=== PATIENT | female | born 2000 | race Caucasian/White ===

== ENCOUNTER → 2019-09-11 09:19 | Outpatient (BNVA) | payer OTHER, SELFPAY | PROVIDERS: Family Provider Family Medicine; PCP Family Medicine; Visit Provider Obstetrics & Gynecology | DX: Z34.90 Encounter for supervision of normal pregnancy, unspecified, unspecified trimester (principal) | CPT/HCPCS: 36415; 82950; 85027 ==

== ENCOUNTER → 2019-09-27 15:00 | Outpatient (BNVA) | payer OTHER, SELFPAY | PROVIDERS: Family Provider Family Medicine; PCP Family Medicine; Visit Provider Obstetrics & Gynecology | DX: Z01.89 Encounter for other specified special examinations (principal) | CPT/HCPCS: 84315 ==

== ENCOUNTER → 2019-10-12 09:36 | Outpatient (BNVA) | payer OTHER, SELFPAY | PROVIDERS: Family Provider Family Medicine; PCP Family Medicine; Visit Provider Obstetrics & Gynecology Female Pelvic Medicine and Reconstructive Surgery | DX: Z01.89 Encounter for other specified special examinations (principal) | CPT/HCPCS: 84315 ==

== ENCOUNTER → 2019-10-26 08:31 | Outpatient (BNVA) | payer OTHER, SELFPAY | PROVIDERS: Family Provider Family Medicine; PCP Family Medicine; Visit Provider Nurse Practitioner Women's Health | DX: Z01.89 Encounter for other specified special examinations (principal) | CPT/HCPCS: 84315 ==

== ENCOUNTER → 2019-10-29 13:56 | Outpatient (BNVA) | payer OTHER, SELFPAY | PROVIDERS: Family Provider Family Medicine; PCP Family Medicine; Referring Provider Nurse Practitioner Women's Health; Visit Provider Obstetrics & Gynecology | DX: O26.00 Excessive weight gain in pregnancy, unspecified trimester (principal); Z36.89 Encounter for other specified antenatal screening; Z3A.35 35 weeks gestation of pregnancy | CPT/HCPCS: 76816 ==

== ENCOUNTER → 2019-10-30 13:31 | Outpatient (BNVA) | payer OTHER, SELFPAY | PROVIDERS: Family Provider Family Medicine; PCP Family Medicine; Referring Provider Obstetrics & Gynecology; Visit Provider Obstetrics & Gynecology | DX: O26.03 Excessive weight gain in pregnancy, third trimester (principal); Z3A.32 32 weeks gestation of pregnancy | CPT/HCPCS: 81003; 87086 ==

== ENCOUNTER → 2019-11-02 11:40 | Outpatient (BNVA) | payer OTHER, SELFPAY | PROVIDERS: Family Provider Family Medicine; PCP Family Medicine; Visit Provider Obstetrics & Gynecology | DX: O26.893 Other specified pregnancy related conditions, third trimester (principal); N89.8 Other specified noninflammatory disorders of vagina; B37.3 Candidiasis of vulva and vagina | CPT/HCPCS: 84315; 87210; 87491; 87591 ==

== ENCOUNTER → 2019-11-07 13:48 | Outpatient (BNVA) | payer OTHER, SELFPAY | PROVIDERS: Family Provider Family Medicine; PCP Family Medicine; Visit Provider Obstetrics & Gynecology | DX: Z01.89 Encounter for other specified special examinations (principal) | CPT/HCPCS: 84315 ==

== ENCOUNTER → 2019-11-26 15:29 | Outpatient (BNVA) | payer OTHER, SELFPAY | PROVIDERS: Family Provider Family Medicine; PCP Family Medicine; Visit Provider Obstetrics & Gynecology | DX: O26.03 Excessive weight gain in pregnancy, third trimester (principal) | CPT/HCPCS: 76816; 84315; 87081 ==

== ENCOUNTER → 2019-12-04 11:44 | Outpatient (BNVA) | payer OTHER, SELFPAY | PROVIDERS: Family Provider Family Medicine; PCP Family Medicine; Visit Provider Obstetrics & Gynecology | DX: Z46.89 Encounter for fitting and adjustment of other specified devices (principal) | CPT/HCPCS: 84315 ==

== ENCOUNTER → 2019-12-11 12:04 | Outpatient (BNVA) | payer OTHER, SELFPAY | PROVIDERS: Family Provider Family Medicine; PCP Family Medicine; Visit Provider Obstetrics & Gynecology | DX: Z01.89 Encounter for other specified special examinations (principal) | CPT/HCPCS: 84315 ==

== ENCOUNTER 2019-12-17 23:30 | Inpatient (IN) | payer OTHER, SELFPAY ==
[2019-12-17 19:45] VITALS: RESP 16; TEMP 36.9
[2019-12-17 20:06] VITALS: BMI 29.9
[2019-12-18] VITALS (38 sets, daily range): BP systolic 0–124; BP diastolic 0–81; PULSE 78–116; RESP 15–18; TEMP 36.4–38.8; O2SAT 95–99
[2019-12-18] MEDS: lactated ringers 1,000 ML 999 ML IV (00:10)
[2019-12-18 00:24] LABS: Basophils % 0.2 %; Eosinophils # 0.1 10^3/uL (0.0-0.8); Eosinophils % 0.3 %; Hemoglobin 11.6 g/dL (11.5-15.3); Lymphocytes # 3.4 10^3/uL (0.8-4.8); Lymphocytes % 21.1 %; Mean Corpuscular HGB Conc 34.1 g/dL (30.0-36.0); Mean Corpuscular Hemoglobin 31.8 pg (28.0-34.0); Mean Corpuscular Volume 93.2 fL (81-99); Mean Platelet Volume 10.5 fL (7.4-10.4); Monocytes # 1.1 10^3/uL (0.2-0.9); Monocytes % 6.6 %; Neutrophils # 11.6 10^3/uL (1.8-7.7); Neutrophils % 71.4 %; Nucleated Red Blood Cells % 0 %; Platelet Count 265 10^3/cmm (130-400); Red Blood Count 3.65 10^6/uL (4.1-5.3); Red Cell Distribution Width 12.3 % (12.1-15.1); White Blood Count 16.3 10^3/uL (4.0-10.0)
[2019-12-18 00:35] LABS: Amphetamines Screen Urine Negative (Negative); Barbiturates Screen Urine Negative (Negative); Benzodiazepines Screen Urine Negative (Negative); Cocaine Screen Urine Negative (Negative); Opiate Screen Urine Negative (Negative); PCP Screen Urine Negative (Negative); THC Screen Urine Negative (Negative)
[2019-12-18] MEDS: dextrose 5%-lactated ringers 1,000 ML 125 ML IV ×2 (01:20→09:30)
--- NOTE | 2019-12-18 01:33 | P.ANESASSM_ITS ---
Pre-Anesthetic Assessment Pre-Anesthetic Assessment: Height/Weight: Height 1.75 m Weight 92.079 kg Preop Diagnosis: IUP Proposed Procedure: labor lumbar epidural Was Beta John taken within 24 hours: N/A Last Intake: 19:00 Social: Social History: No alcohol and No tobacco Exam: Pre-Anes Outpt Exam: alert, oriented x 3, clear to auscultation bilaterally and regular rate & rhythm Airway: Submandibular: WNL Cervical ROM: WNL MP: 2 Dentition: Full Pulmonary: Pulmonary: None reported CV/HEM: CV/HEM: None reported : : UTI (hx. no s/s now) Hepatic: Hepatic: None reported GI: GI: None reported Metabolic: Metabolic: None reported Neuropsych: Neuropsych: None reported Anesthetic Plan: ASA status: 2 Anesthesia: Regional (specify below) Meds/Allergies Current Medications: Current Medications Generic Name Dose Route Start Last Admin Trade Name Freq PRN Reason Stop Dose Admin Ropivacaine 200 mg in 100 mls @ 6 mls/hr 12/17/19 23:45 12/18/19 01:17 Naropin Premix EPIDURAL 13 mls/hr .[id number] VEL Administration Dextrose/Lactated Ringer's 1,000 mls @ 125 m ls/hr 12/17/19 23:45 12/18/19 01:20 Dextrose 5%-Lact ated Ringers IV 125 mls/hr .Q8H VEL Administration PFSH Anesthesia PFSH: Social History Smoking and tobacco status: never smoked Alcohol intake: current Additional social history: - Tobacco use: Denies Alcohol use: Social alcohol use occasionally prior to the -denies any during the Drug use: Started using marijuana at the age of 18 and smoked weekly until she stopped when she found out she was -last use was in April 2019. Denies any other drug use. 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 Female Reproductive History: : 1 Data Anesthesia CBC & Chem 7: 12/17/19 23:30 Other Labs: Laboratory Results - last 48 hr 12/17/19 12/17/19 23:30 23:30 WBC 16.3 H RBC 3.65 L Hgb 11.6 Hct 34.0 L MCV 93.2 MCH 31.8 MCHC 34.1 RDW 12.3 Plt Count 265 MPV 10.5 H Neut % (Auto) 71.4 Lymph % (Auto) 21.1 [place] % (Auto) 6.6 Eos % (Auto) 0.3 Baso % (Auto) 0.2 Neut # (Auto) 11.6 H Lymph # (Auto) 3.4 [place] # (Auto) 1.1 H Eos # (Auto) 0.1 Baso # (Auto) 0.0 Nucleated RBC % (auto) 0 Nucleated RBCs # 0.0 Urine Opiates Screen Negative Ur Barbiturates Screen Negative Ur Phencyclidine Scrn Negative Ur Amphetamines Screen Negative U Benzodiazepines Scrn Negative Urine Cocaine Screen Negative U Marijuana (THC) Screen Negative Cardiac Studies: No Data to Display Anesthesia Procedures Epidural: Time Out Performed: Yes Consents Signed: Procedure Consent Consent: from patient, risks and benefits reviewed and patient agrees to proceed Lumbar Level: L3-L4 Epidural position: sitting Epidural procedure: sterile prep of area, 1% lidocaine to numb the area (5), 18 g needle, negative for paresthesia passed, neg for paresthesia, test dose given, 1.5% xylocaine 1:200k epi (5), 0.2% Ropivacaine bolus ml (8), placed PCEA (5cc q10min x 3), no systemic response, sterile dressing applied, L.U.D. no apparent complications and 0.2% Ropiavacaine @ mls/hr (13) Additional Comments: Called to OB for epidural placement, pt evaluated and assessed for placement and explained procedure. Labs reviewed. Pt agrees to proceed. placed to 5cm in space and tolerated well. Bolused over 7 min and VSS throughout per nursing chart. Last BP 115/72. Pain much improved.
[2019-12-18] MEDS: oxytocin 30 UNIT/500 ML BAG 600 UNIT IV (13:03)
--- NOTE | 2019-12-18 13:09 | PM.DELIVERY ---
 Delivery Note: Date of delivery: December 18, 2019 Pre-delivery diagnoses: at 39-5/7 weeks gestation. Anemia in in third trimester. Large for gestational age [place] fetus in third trimester Maternal fever Post-delivery diagnoses: at 39-5/7 weeks gestation. Maternal fever - delivered Viable male Procedure: Spontaneous vaginal delivery Op report anesthesia: Epidural Delivering Physician: Dr. Robel Quintero Estimated blood loss (mL): 300 Pre-Delivery Course: Patient is a 19-year-old white female 1, para 0 with an LMP of 03/15/2019 and an EDC of 12/20/2019 based on LMP and consistent with a 6-week ultrasound, which placed her at 39-4/7 weeks gestation at the time of admission. She presented to labor and delivery in the evening of 12/16 with complaint of contractions. She was noted to be trish sporadically at the time. As she was watched over the next 4 hours, contractions became more consistent and stronger. She was noted to have made cervical change and as a result was admitted to the hospital. Pain continued to worsen through the night and she had epidural placed. At 8: 46, artificial rupture membranes was performed. The cervix at that time was initially 95% effaced and 5 cm dilated with bulging membranes. Following the rupturing of membranes the cervix shrank to 3 cm dilation. She continued to progress and was found to be complete at 11: 28. She was very comfortable with the epidural and was allowed to labor down. During this timeframe, baby became tachycardic and maternal temperature was checked and she was found to be 101.9 oral temperature at 11:53. She had not had any fevers previously. Since she was close to delivery, decision was made not to start antibiotics at this time. Delivery: Patient started pushing at 12:30 and delivered at 12:53 as a spontaneous vaginal delivery of an occiput anterior male infant over an intact perineum under epidural anesthesia. Following delivery of the infant's head, no nuchal cords were noted. The right hand was delivering adjacent to the left cheek. This arm was swept out which allowed the anterior shoulder which was the left 1 to easily deliver. The rest of the delivered atraumatically. The infant was placed on the mother's abdomen where it was left in the care of the waiting nurses. Nose and mouth was suctioned at that time. Cord was clamped and then cut by the reported father of the baby. Baby was spontaneously crying. Cord blood was obtained. Pitocin bolus was started. Placenta delivered intact by simple expression at 12:56. The cervix and vagina were palpated and noted to be intact. The labia were inspected and noted be intact except for superficial bilateral periurethral lacerations and superficial labial lacerations. No repair was needed of any of these. FINDINGS: 1. Viable male weighing 8 lbs 0 oz (3615 g) with a length of 21-1/4 inches and Apgars of 9 at 1 minute and 9 at 5 minutes. 2. Normal-appearing placenta with an eccentric cord insertion. 3. Three-vessel cord with no nuchal cords noted. Post-Delivery Status: Mother and were left to recover in satisfactory condition. 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
[2019-12-18] MEDS: acetaminophen 325 mg Tablet 650 MG PO (13:22)
[2019-12-18] MEDS: docusate sodium 100 mg Capsule PO (18:00)
[2019-12-18] MEDS: HYDROcodone-acetaminophen 5-325 mg Tablet PO (18:00)
[2019-12-18] MEDS: benzocaine-menthol 78 gm Canister 1 SPRAY TOPICAL (18:07)
--- NOTE | 2019-12-18 18:10 | PC.NURSE ---
pt up to bathroom and then ambulated to nursery to see baby. tolerated well
--- NOTE | 2019-12-18 18:38 | PC.NURSE ---
pt ambulated to room 207-2 without difficulty. oriented to room/call light
[2019-12-19 01:50] LABS: Hematocrit 30.4 % (37.0-47.0); Hemoglobin 10.4 g/dL (11.5-15.3); Mean Corpuscular HGB Conc 34.2 g/dL (30.0-36.0); Mean Corpuscular Hemoglobin 32.4 pg (28.0-34.0); Mean Corpuscular Volume 94.7 fL (81-99); Mean Platelet Volume 10.2 fL (7.4-10.4); Platelet Count 225 10^3/cmm (130-400); Red Blood Count 3.21 10^6/uL (4.1-5.3); Red Cell Distribution Width 12.5 % (12.1-15.1); White Blood Count 19.2 10^3/uL (4.0-10.0)
[2019-12-19 03:45] VITALS: BP 110/73; PULSE 88; RESP 16; TEMP 36.6; O2SAT 99
[2019-12-19 07:45] VITALS: BP 99/65; PULSE 88; RESP 16; TEMP 36.4; O2SAT 99
[2019-12-19] MEDS: prenatal vitamin Capsule 1 CAP PO (08:41)
[2019-12-19] MEDS: docusate sodium 100 mg Capsule PO (08:41)
--- NOTE | 2019-12-19 09:48 | PM.PN ---
Subjective Subjective: Interval history: Reports doing well overall. Denies lightheadedness or dizziness with ambulation. Denies shortness of breath or chest pains. Denies problems with urination. Reports pain is well controlled. Reports tolerating a regular diet without nausea or vomiting. Bleeding has slowed. She is breast-feeding. Vitals/I&O/Wt Last Vital Signs Temp 97.6 F 12/19/19 07:45 Pulse 88 12/19/19 07:45 Resp 16 12/19/19 07:45 BP 99/65 12/19/19 07:45 Pulse Ox 99 12/19/19 07:45 12/18/19 12/19/19 12/19/19 22:59 06:59 14:59 Intake Total 875 / 1975 Output Total 1150 / 1750 700 / 2450 Balance -275 / 225 -700 / -475 Weight last 48 hrs Weight 203 lb Physical Exam Const: COMMON NORMALS: no apparent distress, average body habitus, alert and well nourished GENERAL APPEARANCE: well developed ORIENTATION/CONSCIOUSNESS: Yes oriented to person, Yes oriented to place and Yes oriented to time Resp: COMMON NORMALS: normal respiratory effort and clear to auscultation bilaterally AUSCULTATION: clear to auscultation bilaterally Cardio: COMMON NORMALS: regular rate, regular rhythm, no gallops, no murmurs and no rub RATE: regular rate RHYTHM: regular rhythm GI: COMMON NORMALS: soft to palpation, non-tender, no hepatosplenomegaly and no masses (Except for nontender, firm uterus, 2 fingerbreadths below umbilicus) AUSCULTATION: Yes normoactive bowel sounds PALPATION: Yes soft, Yes no hepatosplenomegaly and No hernia : EXTERNAL FEMALE EXAM: No hernia Extremity: COMMON NORMALS: no calf tenderness GENERAL: Yes edema (Trace to 1+ lower extremity) Neuro: SENSORIUM/ORIENTATION: Yes alert, Yes oriented to person, Yes oriented to place and Yes oriented to time Psych: COMMON NORMALS: affect normal MOOD & AFFECT: Yes euthymic mood Skin: COMMON NORMALS: no rashes or lesions noted GENERAL SKIN EXAM: no rashes or lesions noted Data : 12/19/19 01:44 A&P Assessment and plan (1) Vaginal delivery: day 1, approximately 18 hours status post vaginal delivery. Patient doing well overall. Increase activities as tolerated. May shower. Continue present management. Baby is not being released due to maternal fever during labor. Status: Acute (2) Maternal fever during labor, delivered: Mother had an unexplained fever of 101.9 approximately 1 hour prior to delivery. She had no other signs of infection noted. She had a fever of 101.4 approximately 2 hours after delivery with temperature being normal since then. She was not started on antibiotics prior to delivery due to the close proximity to delivery at the time. She was also not started on antibiotics afterwards. We will continue to monitor temperature through the day today. Status: Acute Attestations Medical Necessity Statement*: Patient is less than 24 hours after delivery being monitored for fever. 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
[2019-12-19 10:35] VITALS: BP 107/72; PULSE 91; RESP 18; TEMP 36.8
--- NOTE | 2019-12-19 16:35 | PM.DCS ---
Discharge Providers Date of Admission: 12/17/19 23:30 Date of Discharge: December 19, 2019 Attending Provider at Admission: Robel Quintero MD Attending Provider at Discharge: Robel Quintero MD Primary Care Provider: Anibal Mehta MD Diagnoses at Discharge Discharge Diagnosis (1) Vaginal delivery: Status: Acute (2) Maternal fever during labor, delivered: Status: Acute Reason for Visit Reason for Visit: Reason For Visit: contractions Hospital Course Hospital Course: Patient is a 19-year-old white female 1, para 0 with an LMP of 03/15/2019 and an EDC of 12/20/2019 based on LMP and consistent with a 6-week ultrasound, which placed her at 39-4/7 weeks gestation at the time of admission. She presented to labor and delivery in the evening of 12/17/2019 with complaint of contractions. She was monitored for labor and cervical change and made slow manager change the next 4 hours. Contractions became more consistent and stronger during that time as well. She was admitted to the hospital and during the night had epidural placed. At 08: 46 on 12/18/2019, artificial rupture membranes was performed with clear fluid present. She was 95% effaced and 5 cm dilated at the time. She continued to progress through the morning and was found to be completely dilated at 11: 28. At approximately 11: 50, tachycardia was noted and her temperature was checked and she was found to have a fever of 101.9. No other signs of infection was noted. Since she was close to delivery, antibiotics were not started. She was initially very comfortable with contractions and labor down. She started pushing at 12: 30 and delivered at 12: 53 as a spontaneous vaginal delivery of an occiput anterior male infant over an intact perineum under epidural anesthesia. The baby weighed 8 pounds 0 ounces (3615 g) with a length of 21-1/4 inches and Apgars of 9 at 1 minute and 9 at 5 minutes. She had superficial bilateral periurethral lacerations and superficial labial lacerations and required no repair. She had 1 more temperature elevation to 101.4 approximately 2 hours after delivery with no further temperature elevations. On day 1, she was doing well. She was tolerating a regular diet without nausea or vomiting. She was passing flatus. She was urinating without difficulty. She was ambulating without lightheadedness or dizziness. Her pain was well controlled on oral medications. She was breast-feeding. She was afebrile with stable vital signs. She was monitored through the day with no further temperature elevations and by evening she had been afebrile for approximately 24 hours. At this point she was requesting to go ahead and be released. She is planning to room-in with the baby since it is not being released at this time because of the mother having a fever before delivery. Discharge instructions were discussed with her. Follow-up appointment was recommended in [address] Rose. She was instructed to continue vitamins and iron at home. She plans to use [id number] ibuprofen and Tylenol as needed. Discharge Data Data Completed and Pending: Labs from last 24 hours 12/19/19 01:44 WBC 19.2 H RBC 3.21 L Hgb 10.4 L Hct 30.4 L MCV 94.7 MCH 32.4 MCHC 34.2 RDW 12.5 Plt Count 225 MPV 10.2 Vitals: Last Vital Signs Temp 98.2 F 12/19/19 10:35 Pulse 91 12/19/19 10:35 Resp 18 12/19/19 10:35 BP 107/72 12/19/19 10:35 Pulse Ox 99 12/19/19 07:45 Discharge Plan Discharge Patient Disposition: Home, Self-Care Condition: Stable Prescriptions: Continued prenat.vits,anne,[id number] Tablet 1 tab PO DAILY RF: 0 ferrous fumarate 325 mg (106 mg iron) tablet 325 mg PO DAILY RF: 0 acetaminophen [Tylenol Extra Strength] 500 mg tablet 500 mg PO Q6H PRN (Reason: Pain, Mild) RF: 0 Discharge Orders: Discharge Order (Routine); Ordered 12/19/19 Ordered By: Robel Quintero Referrals: Robel Quintero MD [Physician] - 6 Weeks (6 week appointment is scheduled for 01/29/2020 at 10:15 am.) Porsche Jc MD [Physician] - 6 Weeks ( exam) Discharge Diet: Regular Discharge Activity: Resume usual activity Patient Instructions: Iron Supplements (By mouth), Acetaminophen (By mouth), Vitamins (By mouth), Vaginal Delivery (DC), OB Discharge Report, OB Food/Drug Interaction Guide, OB Care at Home, OB Home Care, OB Proud Parent Packet, OB Vaginal Deliveries, OB Vaginal Deliveries - 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
[2019-12-19 16:43] VITALS: BP 108/72; PULSE 90; RESP 18; TEMP 36.7
--- NOTE | 2019-12-19 17:24 | PC.NURSE ---
Patient rooming in with baby.
== END 2019-12-19 17:24 | disposition home or self-care (01) | DRG 806 ==
LOC: OPOB 23:30
PROVIDERS: Admitting Provider Obstetrics & Gynecology; Family Provider Family Medicine; PCP Family Medicine; Visit Provider Obstetrics & Gynecology
DX: O76 Abnormality in fetal heart rate and rhythm complicating labor and delivery (principal); O75.2 Pyrexia during labor, not elsewhere classified; Z37.0 Single live birth; Z3A.39 39 weeks gestation of pregnancy; O70.0 First degree perineal laceration during delivery
CPT/HCPCS: 12345; 36415; 59025; 59409; 80306; 84315; 85025; 85027; 99211; J2795

== ENCOUNTER → 2020-01-29 10:25 | Outpatient (BNVA) | payer OTHER, SELFPAY | PROVIDERS: Family Provider Family Medicine; PCP Family Medicine; Visit Provider Obstetrics & Gynecology | DX: Z39.2 Encounter for routine postpartum follow-up (principal); Z30.9 Encounter for contraceptive management, unspecified; Z12.4 Encounter for screening for malignant neoplasm of cervix | CPT/HCPCS: 88175 ==

== ENCOUNTER → 2020-02-12 11:46 | Outpatient (BNVA) | payer OTHER, SELFPAY | PROVIDERS: Family Provider Family Medicine; PCP Family Medicine; Visit Provider Obstetrics & Gynecology | DX: R87.611 Atypical squamous cells cannot exclude high grade squamous intraepithelial lesion on cytologic smear of cervix (ASC-H) (principal) | CPT/HCPCS: 81025 ==

== ENCOUNTER → 2020-02-13 12:42 | Outpatient (BNVA) | payer OTHER, SELFPAY | PROVIDERS: Family Provider Family Medicine; PCP Family Medicine; Visit Provider Obstetrics & Gynecology | DX: R87.611 Atypical squamous cells cannot exclude high grade squamous intraepithelial lesion on cytologic smear of cervix (ASC-H) (principal) | CPT/HCPCS: 88305 ==

== ENCOUNTER 2020-03-06 09:03 | Day surgery (SDC) | payer OTHER, SELFPAY ==
[2020-03-05 13:17] VITALS: BMI 25.8
[2020-03-06] VITALS (9 sets, daily range): BP systolic 100–121; BP diastolic 67–83; PULSE 68–86; RESP 10–19; TEMP 36.3–37.4; O2SAT 94–99
[2020-03-06 09:14] LABS: OR HCG Qualitative Urine Negative (Negative)
--- NOTE | 2020-03-06 09:38 | P.ANESASSM_ITS ---
Pre-Anesthetic Assessment Pre-Anesthetic Assessment: Height/Weight: Height 1.75 m Weight 79.379 kg Temp Pulse Resp BP Pulse Ox 97.4 F L 72 18 110/73 99 03/06/20 09:13 03/06/20 09:13 03/06/20 09:13 03/06/20 09:13 03/06/20 09:13 Preop Diagnosis: LISA 3 Proposed Procedure: Operation Date: 03/06/20 10:20 Proposed Procedures p Cold Knife Cone Biopsy of Cervix 33029 D06.9(Not Applicable) - Porsche Fletcher MD Familial anesthetic complications: None Was Beta John taken within 24 hours: N/A Last intake: Intake Last Liquid Date 03/05/20 Last Liquid Time 23:00 Last Solid Date 03/05/20 Last Solid Time 23:00 Social: Social History: No alcohol Exam: Pre-Anes Outpt Exam: alert, oriented x 3, clear to auscultation bilaterally and regular rate & rhythm Airway: Cervical ROM: WNL MP: 1 Dentition: Other (missing) Pulmonary: Pulmonary: None reported CV/HEM: CV/HEM: None reported : : None reported Hepatic: Hepatic: None reported GI: GI: None reported Metabolic: Metabolic: None reported Musc/skel: Musc/skel: None reported Neuropsych: Neuropsych: None reported Anesthetic Plan: ASA status: 1 Anesthesia: MAC Risk of > 500 ml blood loss (7ml/kg in children): No PFSH Anesthesia PFSH: Medical History (Updated 02/19/20 @ 16:12 by Porsche Jc MD) Cervical intraepithelial neoplasia grade 3 No pertinent past medical history Denies diabetes, asthma, hypertension, seizures, DVT/PE, genital herpes for herself or her partner, bleeding or clotting problems. PcP: JAMIE Massey Surgical History H/O arthroscopic knee surgery (~01/2018) Left---performed by Dr. Jimenez for swelling and pain Family History Family/Other Diabetes Maternal great aunt Hypothyroidism Maternal cousin, maternal great aunt Heart disease Maternal great grandfather Father Hypertension Grandfather Heart disease Maternal Grandmother Hypothyroidism maternal Denies family history of Cervical cancer Ovarian cancer DVT (deep venous thrombosis) Breast cancer Pulmonary embolism Social History Smoking and tobacco status: never smoked Alcohol intake: current Additional social history: - Tobacco use: Denies Alcohol use: Social alcohol use occasionally prior to the -denies any during the Drug use: Started using marijuana at the age of 18 and smoked weekly until she stopped when she found out she was -last use was in April 2019. Denies any other drug use. 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
[2020-03-06] MEDS: sodium chloride 0.9% 1,000 ML 30 ML IV (09:43)
[2020-03-06 09:44] LABS: Basophils % 0.2 %; Eosinophils % 0.8 %; Hematocrit 38.8 % (37.0-47.0); Hemoglobin 13.3 g/dL (11.5-15.3); Lymphocytes # 3.1 10^3/uL (0.8-4.8); Lymphocytes % 58.7 %; Mean Corpuscular HGB Conc 34.3 g/dL (30.0-36.0); Mean Corpuscular Hemoglobin 31.7 pg (28.0-34.0); Mean Corpuscular Volume 92.6 fL (81-99); Monocytes # 0.4 10^3/uL (0.2-0.9); Monocytes % 8.3 %; Neutrophils # 1.7 10^3/uL (1.8-7.7); Neutrophils % 31.8 %; Nucleated Red Blood Cells % 0 %; Platelet Count 297 10^3/cmm (130-400); Red Blood Count 4.19 10^6/uL (4.1-5.3); Red Cell Distribution Width 11.5 % (12.1-15.1); White Blood Count 5.2 10^3/uL (4.0-10.0)
--- NOTE | 2020-03-06 10:36 | P.HPUD_ITS ---
Surgery/Procedure H&P Update DATE OF PROCEDURE: March 06, 2020 DATE H&P PERFORMED: 02/19/20 H&P UPDATE INFORMATION: I have reviewed H&P completed within last 30 days, I have examined patient prior to procedure, No changes to prior documentation and H&P is in [facility] EMR on date indicated PREOP DIAGNOSIS: LISA 3 PLANNED PROCEDURE: Operation Date: 03/06/20 10:20 Proposed Procedures p Cold Knife Cone Biopsy of Cervix 46522 D06.9(Not Applicable) - Porsche Fletcher MD
--- NOTE | 2020-03-06 11:29 | SUR.OPER ---
Used vinegar exp 05/14/22 10ml, moncel's [id number] exp 09/04/20 10ml, Lugols [id number] exp 06/24 8ml to cervix.
--- NOTE | 2020-03-06 12:02 | P.OP_ITS ---
Operative Report Date of procedure: March 06, 2020 OPERATIVE REPORT Date of surgery: 03/06/2020 Date of dictation: 03/06/2020 Preoperative diagnosis: LISA-3 Postoperative diagnosis/findings: Same, dense acetowhite lesions circumferentially around the cervix-external os. Procedure done: Cone biopsy of cervix Specimens removed/disposition of specimens: Cone biopsy of cervix, post cone ECC Surgeon: Dr. Porsche Rose Wet Pour Supervisor: rebecca Anesthesia: Laryngeal mask anesthesia Estimated blood loss: 150 ml Intravenous fluids: 800 mL of LR Urine output: Patient voided prior to the procedure. Medications: As per anesthesia records Complications: None, patient was taken to the recovery room in a stable condition. PROCEDURE: After informed consent was obtained patient was taken to the operating room where she was placed under anesthesia and then placed in lithotomy position. Examination under anesthesia revealed a 1-2? cystocele, minimal rectocele, grade 1 uterine descent, small cervix with mobile uterus, no adnexal masses. Weighted speculum and anterior vaginal retractor were placed and tenaculum was used to grasp the anterior lip of the cervix. Sutures were placed at 3:00 and 9:00 for hemostasis. Acetic acid and Lugol's were placed over the cervix and a small area of acetowhite was noted at about circumferentially around the external os. Densest lesion was between 8:00 and 1:00 as noted previously. Remainder of the cervix appeared normal, no additional changes noted with Lugol's iodine placement. Using a scalpel cold knife cone biopsy was done-shallow as to try to retain as much cervical tissue as possible. It was tagged at 12:00. Once this was done endocervical curettage was performed both with a curet and Cytobrush and the specimens were sent to pathology. Using the rollerball cautery was obtained over the cervix. Posteriorly from about 6:00 to 9:00 there was continued bleeding and [id number] sutures were placed here. Good hemostasis was achieved. Monsel's was used and with the combination of the sutures Monsel's and rollerball cautery good hemostasis was noted. All instruments and taken of this and patient was taken to same-day surgery in stable condition. Patient was to be monitored for 2 hours to watch for any bleeding. FOLLOW UP: Follow-up in 2 weeks and 6 weeks with surgeon MEDICATION ON DISCHARGE: Colace 100 mg by mouth every 12 hours when necessary constipation, 30 tablets, no refills Ibuprofen 800 mg by mouth every 8 hours when necessary pain, 60 tablets, no refills. Magnet 5/325 mg 1 tablet by mouth every 6 hours when necessary pain,25 tablets, no refills Continue other home medication DISPOSITION: Home in a stable condition Pre-op Diagnosis: LISA 3
[2020-03-06] MEDS: HYDROcodone-acetaminophen 5-325 mg Tablet 1 TAB PO (13:27)
== END 2020-03-06 14:43 | disposition home or self-care (01) ==
PROVIDERS: PCP Family Medicine; Visit Provider Obstetrics & Gynecology
PROC: 0UB97ZZ Excision of Uterus, Via Natural or Artificial Opening (ICD-10-PCS; CPT 57520; principal; 2020-03-06 10:20)
DX: D06.9 Carcinoma in situ of cervix, unspecified (principal)
CPT/HCPCS: 57522; 12345; 36415; 81025; 84703; 85025; 86850; 86900; 88305; 88307; J1100; J2001; J2405; J2704; J2765; J3010; J7030

== ENCOUNTER → 2020-10-10 10:14 | Outpatient (BNVA) | payer OTHER, SELFPAY | PROVIDERS: PCP Family Medicine; Visit Provider Obstetrics & Gynecology | DX: N94.10 Unspecified dyspareunia (principal); N85.4 Malposition of uterus; N83.291 Other ovarian cyst, right side | CPT/HCPCS: 76830 ==

== ENCOUNTER → 2021-02-11 11:27 | Outpatient (BNVA) | payer OTHER, SELFPAY | PROVIDERS: PCP Family Medicine; Visit Provider Nurse Practitioner Women's Health | DX: Z32.01 Encounter for pregnancy test, result positive (principal); N92.6 Irregular menstruation, unspecified | CPT/HCPCS: 81025 ==

== ENCOUNTER → 2021-03-25 09:47 | Outpatient (BNVA) | payer OTHER, SELFPAY | PROVIDERS: PCP Family Medicine; Visit Provider Obstetrics & Gynecology | DX: Z34.90 Encounter for supervision of normal pregnancy, unspecified, unspecified trimester (principal); Z34.80 Encounter for supervision of other normal pregnancy, unspecified trimester | CPT/HCPCS: 80307; 84315; 85027; 86592; 86762; 86803; 86850; 86900; 87086; 87340 ==

== ENCOUNTER → 2021-04-13 15:20 | Outpatient (BNVA) | payer OTHER, SELFPAY | PROVIDERS: PCP Family Medicine; Visit Provider Obstetrics & Gynecology | DX: Z34.80 Encounter for supervision of other normal pregnancy, unspecified trimester (principal); O34.40 Maternal care for other abnormalities of cervix, unspecified trimester; Z12.4 Encounter for screening for malignant neoplasm of cervix; Z98.890 Other specified postprocedural states; Z34.90 Encounter for supervision of normal pregnancy, unspecified, unspecified trimester; F41.9 Anxiety disorder, unspecified; F32.9 Major depressive disorder, single episode, unspecified | CPT/HCPCS: 84315; 87491; 87591; 88175 ==

== ENCOUNTER 2021-10-04 12:28 | Outpatient (CLI) | payer OTHER, SELFPAY ==
[2021-10-04 12:28] VITALS: RESP 17; TEMP 36.7
[2021-10-04 12:55] VITALS: BP 110/62; PULSE 78
[2021-10-04 13:20] VITALS: BP 110/62; PULSE 78; RESP 17
== END 2021-10-04 13:20 | disposition home or self-care (01) ==
LOC: OPOB 12:52 → OBGYN 12:53
PROVIDERS: PCP Family Medicine; Visit Provider Family Medicine
DX: O26.899 Other specified pregnancy related conditions, unspecified trimester (principal); Z3A.00 Weeks of gestation of pregnancy not specified; N89.8 Other specified noninflammatory disorders of vagina
CPT/HCPCS: 59025; 87210; 99211

== ENCOUNTER → 2021-10-07 11:04 | Outpatient (BNVA) | payer OTHER, SELFPAY | PROVIDERS: PCP Family Medicine; Visit Provider Family Medicine | DX: Z01.812 Encounter for preprocedural laboratory examination (principal) | CPT/HCPCS: 87635 ==

== ENCOUNTER 2021-10-11 21:06 | Outpatient (CLI) | payer OTHER, SELFPAY ==
[2021-10-11 21:12] VITALS: BP 118/77; PULSE 100
[2021-10-11 21:15] VITALS: TEMP 36.2
[2021-10-11 21:20] VITALS: BMI 27.7
[2021-10-11 21:51] LABS: Nitrazine Paper, PH Negative
[2021-10-11 22:14] VITALS: BP 111/72; PULSE 78
[2021-10-11 23:19] VITALS: BP 118/81; PULSE 76
== END 2021-10-11 23:34 | disposition home or self-care (01) ==
LOC: OPOB 21:07 → OBGYN 21:09
PROVIDERS: PCP Family Medicine; Visit Provider Family Medicine
DX: O26.899 Other specified pregnancy related conditions, unspecified trimester (principal); Z3A.00 Weeks of gestation of pregnancy not specified; N89.8 Other specified noninflammatory disorders of vagina; R10.9 Unspecified abdominal pain
CPT/HCPCS: 59025; 83986; 99211

== ENCOUNTER 2021-10-12 02:08 | Inpatient (IN) | payer OTHER, SELFPAY ==
[2021-10-12] VITALS (72 sets, daily range): BP systolic 79–136; BP diastolic 46–81; PULSE 57–142; RESP 14–17; TEMP 35.9–37; O2SAT 94–99; BMI 27.7
[2021-10-12] MEDS: lactated ringers 1,000 ML 999 ML IV ×2 (02:21→03:26)
[2021-10-12 02:26] LABS: Basophils % 0.3 %; Eosinophils % 0.2 %; Hematocrit 32.3 % (37.0-47.0); Lymphocytes # 2.6 10^3/uL (0.8-4.8); Mean Corpuscular HGB Conc 34.1 g/dL (30.0-36.0); Mean Corpuscular Hemoglobin 30.4 pg (28.0-34.0); Mean Corpuscular Volume 89.2 fl (81-99); Mean Platelet Volume 10.3 fL (7.4-10.4); Monocytes # 0.7 10^3/uL (0.2-0.9); Monocytes % 5.2 %; Neutrophils # 9.58 10^3/uL (1.8-7.7); Neutrophils % 73.8 %; Nucleated Red Blood Cells % 0 %; Platelet Count 242 10^3/cmm (130-400); Red Blood Count 3.62 10^6/uL (4.1-5.3); Red Cell Distribution Width 11.9 % (12.1-15.1)
[2021-10-12] MEDS: fentaNYL 50 mcg/mL INJ 2mL IVP (02:50)
--- NOTE | 2021-10-12 03:42 | P.ANESASSM_ITS ---
Pre-Anesthetic Assessment Height/Weight: Height 1.75 m Weight 85.275 kg Temp Pulse Resp BP Pulse Ox 96.6 F L 95 15 116/75 97 10/12/21 01:46 10/12/21 03:37 10/12/21 02:50 10/12/21 03:35 10/12/21 03:37 Preop Diagnosis: LISA 3 CALI Was Beta John taken within 24 hours: N/A Was Clonidine taken within 24 hours: N/A Social No alcohol and No tobacco Exam alert, oriented x 3, clear to auscultation bilaterally and regular rate & rhythm History/ROS No significant history except as noted and No significant complaints Pulmonary None reported CV/HEM None reported None reported Hepatic None reported GI None reported Metabolic None reported Musc/skel None reported Neuropsych None reported Anesthetic Plan ASA status: 1 Anesthesia: Regional (specify below) Risk of > 500 ml blood loss (7ml/kg in children): No Medications/Allergies Home Medications Medication Instructions Recorded Confirmed Last Taken Type escitalopram oxalate 5 mg tablet 5 mg PO DAILY 02/11/21 05/07/21 Unknown History (Lexapro) prenat.vits,anne,jwz-guds-bysqm 1 tab PO DAILY 03/11/21 05/07/21 Unknown History multivitamin with minerals-folic tab PO DAILY tab 04/13/21 05/07/21 Unknown History acid 200 mcg chewable tablet (Women's Multivitamin Gummies) promethazine 12.5 mg tablet 12.5 mg PO TID PRN #20 tab 05/07/21 05/07/21 Unknown Rx Allergies Allergy/AdvReac Type Severity Reaction Status Date / Time amoxicillin Allergy RASH--can Verified 05/07/21 11:41 take KEFLEX Current Medications Generic Name Dose Route Start Last Admin Trade Name Freq PRN Reason Stop Dose Admin Fentanyl 25 - 100 mcg 10/12/21 02:00 10/12/21 02:50 Fentanyl 50 Mcg/Ml Inj 2ml IVP 25 mcg Q1H PRN Administration SEVERE PAIN Lactated Ringer's 1,000 mls @ 999 mls/hr 10/12/21 02:02 10/12/21 03:26 Lactated Ringers IV 999 mls/hr .Q1H1M PRN Administration See label comments PFSH Anesthesia Medical History Anxiety and depression Diagnosed in 2019 and has been medication. Most recently Lexapro which was started in January 2021 and is well controlled. This is managed by primary care provider and she does not have a psychiatrist or therapist. No pertinent past medical history Denies diabetes, asthma, hypertension, seizures, DVT/PE PcP: JAMIE Massey Surgical History H/O arthroscopic knee surgery (~01/2018) Left---performed by Dr. Jimenez for swelling and pain S/P cone biopsy of cervix 03/06/2020---Cone Biopsy by Dr. Rose at [facility] [place] for LISA-3 ----> Pathology showed LISA-2 with negative margins Family History Family/Other Diabetes Maternal great aunt Hypothyroidism Maternal cousin, maternal great aunt Heart disease Maternal great grandfather Father Hypertension Grandfather Heart disease Maternal Grandmother Hypothyroidism maternal Denies family history of Cervical cancer Colon cancer Ovarian cancer DVT (deep venous thrombosis) Breast cancer Pulmonary embolism Uterine cancer Stroke Female Reproductive History : 2 Data Anesthesia : 10/12/21 02:15 Short CBC 10/12/21 Range/Units 02:15 WBC 13.0 H (4.0-10.0) 10^3/uL Hgb 11.0 L (11.5-15.3) g/dL Hct 32.3 L (37.0-47.0) % MCV 89.2 (81-99) fl Plt Count 242 (130-400) 10^3/cmm Neut % (Auto) 73.8 % Neut # (Auto) 9.58 H (1.8-7.7) 10^3/uL Cardiac Studies: No Data to Display
--- NOTE | 2021-10-12 03:46 | P.ANES_ITS ---
Anesthesia Procedures Procedure/Date: 10/12/21 Epidural: Time Out Performed: Yes Consents Signed: Procedure Consent Consent: from patient, risks and benefits reviewed and patient agrees to proceed Lumbar Level: L2-L3 Epidural position: sitting Epidural procedure: sterile prep of area, 1% lidocaine to numb the area, 18 g needle, neg for parest hesia, test dose given, 1.5% xylocaine 1:200k epi (5cc), 0.2% Ropivacaine bolus ml (4cc and Fentanyl 100 mcg), no systemic response, sterile dressing applied, L.U.D. no apparent complications and 0.2% Ropiavacaine @ mls/hr (13cc/hour) Additional Comments: ROEL at 7cm. Tolerated procedure well
[2021-10-12] MEDS: dextrose 5%-lactated ringers 1,000 ML 125 ML IV (04:34)
--- NOTE | 2021-10-12 07:49 | P.HPUD_ITS ---
Labor & Delivery H&P Update Date of Procedure: October 12, 2021 Date H&P Performed: 11/05/21 H&P update information: I have reviewed H&P completed within last 30 days, I have examined patient prior to procedure and Changes to prior documentation as noted here Changes to previous documentation: The patient cervix dilated to 3 cm. Admission Diagnosis: 20-year-old 2 para 1-0-0-1 at 38 weeks estimated gestational age Preop diagnosis: LISA 3 Planned procedure: Spontaneous vaginal delivery Other information: The patient is a 20-year-old female who has had an unremarkable . She initiated her her care with [facility]. She then shifted care a second trimester. She has had an unremarkable . Her blood work has been unremarkable. Her blood type was O+. Her antibody screen was negative. Her glucose screen was negative. Her GBS status is negative. The remainder of her labs are within normal limits. She presented to the hospital in active labor. Her membranes were intact. She had no other concerns or significant symptoms.
--- NOTE | 2021-10-12 07:54 | P.PCNOB_ITS ---
Delivery Note: Date of delivery: October 12, 2021 Pre-delivery diagnoses: 20-year-old 2 para 1-0-0-1 at 38 weeks estimated gestational age Post- delivery diagnoses: Status post spontaneous vaginal delivery Procedure: Spontaneous vaginal delivery Delivering Physician: Anibal Mehta Findings: 100 Pre-Delivery Course: The patient presented to the hospital in active labor. An epidural was placed. Spontaneous rupture membranes occurred. She progressed to complete without difficulty. Delivery: DELIVERY: The patient progressed to complete without difficulty. She delivered a male with a weight of 8 pounds 1 ounce with Apgars of 8, 9. The baby was delivered from the SUE position and placed on the mother's abdomen. The cord was then clamped and cut. There was no nuchal cord. There was no meconium. The placenta and 3 vessel cord were delivered intact shortly thereafter. The perineum and vaginal vault were carefully examined. No lacerations were noted. Both the mother and the baby were in stable condition. Post-Delivery Status: Good History History History 2 Term 1 Miscarriages/Ectopic 0 0 Living Children 1 A&P Assessment and plan (1) Supervision of other normal : I anticipate routine care. If she does well, I expect her to go home tomorrow. Status: Acute (2) 38 weeks gestation of : Status: Acute (3) Spontaneous vaginal delivery: Status: Acute Coding Level of Care Code Acute Learning Administrator for Chg Fwd Diagnoses Supervision of other normal Z34.80 38 weeks gestation of Z3A.38 Spontaneous vaginal delivery O80
--- NOTE | 2021-10-12 12:24 | ANE.PACU2 ---
Inpatient post-anesthesia follow up: Airway intact: Yes Vital signs: Temperature 98.2 F Pulse Rate 101 Respiratory Rate 17 Blood Pressure 122/65 Pulse Oximetry 98 Oxygen Delivery Me thod Room Air Oxygen Flow Rate Fraction of Inspir ed Oxygen Hydration adequate: Yes Nausea and vomiting: No Mental status: Baseline
[2021-10-12] MEDS: ibuprofen 800 mg tablet PO ×2 (14:14→20:55)
[2021-10-12] MEDS: docusate sodium 100 mg Capsule PO (17:29)
[2021-10-12] MEDS: lanolin oint 7 gm 1 APPLIC TOPICAL (20:54)
[2021-10-12] MEDS: benzocaine-menthol 78 gm Canister 1 SPRAY TOPICAL (20:55)
--- NOTE | 2021-10-12 21:11 | PC.NURSE ---
Patient give cribtalk booklet and educated about information covered in book.
[2021-10-12 21:32] LABS: Hematocrit 32.1 % (37.0-47.0); Hemoglobin 10.8 g/dL (11.5-15.3); Mean Corpuscular HGB Conc 33.6 g/dL (30.0-36.0); Mean Corpuscular Hemoglobin 30.6 pg (28.0-34.0); Mean Corpuscular Volume 90.9 fl (81-99); Mean Platelet Volume 10.3 fL (7.4-10.4); Platelet Count 246 10^3/cmm (130-400); Red Blood Count 3.53 10^6/uL (4.1-5.3); Red Cell Distribution Width 12.1 % (12.1-15.1); White Blood Count 12.9 10^3/uL (4.0-10.0)
[2021-10-13 01:54] VITALS: BP 108/66; PULSE 86; RESP 16; O2SAT 95
[2021-10-13 04:08] VITALS: BP 95/62; PULSE 68; RESP 16; O2SAT 96
--- NOTE | 2021-10-13 06:38 | PM.OBGYDC ---
Discharge Providers SURGICAL SCHEDULER Date of Admission: 10/12/21 02:08 Date of Discharge: 10/13/21 Attending Provider at Admission: Anibal Mehta MD Attending Provider at Discharge: Anibal Mehta MD Primary Care Provider: Anibal Mehta MD Diagnoses at Discharge Discharge Diagnosis (1) Supervision of other normal : Status: Acute (2) 38 weeks gestation of : Status: Acute (3) Spontaneous vaginal delivery: Status: Acute Reason for Visit Reason for Visit: Contractions Hospital Course Hospital Course The patient presented to the hospital in active labor. Her membranes were intact. An epidural was placed. Spontaneous rupture of membranes occurred. She progressed to complete and had an unremarkable vaginal delivery of a healthy appearing male . No lacerations were noted. Her course was also unremarkable. Her bleeding was within normal limits. Her pain was well controlled. She breast-fed without difficulty. There were no concerns. Information Peripartum Data: Delivery Method: Vaginal Physical Exam Narrative: The patient is alert. She appears comfortable. Her heart has a regular rate and rhythm with no murmurs appreciated. Lungs are clear to auscultation bilaterally. Her fundus is firm and below the umbilicus. Urinary Catheter Management: Nolasco Latex: Cath Placed During This Visit: yes, but has since been removed by the nurse Reason for Continuing Indwelling Catheter: Other Urinary Catheter Date of Insertion: 10/12/21 Urinary Catheter Time of Insertion: 04:10 Date Urinary Catheter Removed: 10/12/21 Time Urinary Catheter Discontinued: 07:00 History History History 2 Term 1 Miscarriages/Ectopic 0 0 Living Children 1 Discharge Data Studies Completed and Pending Laboratory Results WBC 12.9 10^3/uL (4.0-10.0) H 10/12/21 21:05 RBC 3.53 10^6/uL (4.1-5.3) L 10/12/21 21:05 Hgb 10.8 g/dL (11.5-15.3) L 10/12/21 21:05 Hct 32.1 % (37.0-47.0) L 10/12/21 21:05 MCV 90.9 fl (81-99) 10/12/21 21:05 MCH 30.6 pg (28.0-34.0) 10/12/21 21:05 MCHC 33.6 g/dL (30.0-36.0) 10/12/21 21:05 RDW 12.1 % (12.1-15.1) 10/12/21 21:05 Plt Count 246 10^3/cmm (130-400) 10/12/21 21:05 MPV 10.3 fL (7.4-10.4) 10/12/21 21:05 Neut % (Auto) 73.8 % 10/12/21 02:15 Lymph % (Auto) 20.0 % 10/12/21 02:15 [place] % (Auto) 5.2 % 10/12/21 02:15 Eos % (Auto) 0.2 % 10/12/21 02:15 Baso % (Auto) 0.3 % 10/12/21 02:15 Neut # (Auto) 9.58 10^3/uL (1.8-7.7) H 10/12/21 02:15 Lymph # (Auto) 2.6 10^3/uL (0.8-4.8) 10/12/21 02:15 [place] # (Auto) 0.7 10^3/uL (0.2-0.9) 10/12/21 02:15 Eos # (Auto) 0.0 10^3/uL (0.0-0.8) 10/12/21 02:15 Baso # (Auto) 0.0 10^3/uL (0.0-0.1) 10/12/21 02:15 Nucleated RBC % (auto) 0 % 10/12/21 02:15 Nucleated RBCs # 0.0 /100WBC 10/12/21 02:15 Vitals Last Vital Signs Temp 97.8 F 10/12/21 17:32 Pulse 68 10/13/21 04:08 Resp 16 10/13/21 04:08 BP 95/62 10/13/21 04:08 Pulse Ox 96 10/13/21 04:08 Discharge Plan Discharge Patient Disposition: Home Condition: Stable Prescriptions: Continued Women's Multivitamin Gummies 200 mcg tablet,chewable PO DAILY 0RF escitalopram oxalate [Lexapro] 5 mg tablet 5 mg PO DAILY 0RF Label Comments: she is unsure of dosage Discontinued promethazine 12.5 mg tablet 12.5 mg PO TID PRN (Reason: headache) Qty: 20 0RF prenat.vits,anne,[id number]-dnrl-weluh Tablet 1 tab PO DAILY 0RF Discharge Orders: Discharge Order (Routine); Ordered 10/13/21 Ordered By: Anibal Mehta Referrals: Anibal Mehta MD [Primary Care Provider] - 6 Weeks Discharge Diet: Usual diet Discharge Activity: Limit activity as instructed Patient Instructions: Opioid Safety Discharge Attestations SURGICAL SCHEDULER Time Spent in Discharge Care*: less than 30 min Coding Level of Care Code Acute Band Salvager for Chg Fwd Diagnoses Supervision of other normal Z34.80 38 weeks gestation of Z3A.38 Spontaneous vaginal delivery O80
[2021-10-13 10:17] VITALS: BP 99/65; PULSE 83; RESP 15; TEMP 36.7; O2SAT 95
[2021-10-13 10:18] VITALS: BP 99/65; PULSE 83; RESP 15; TEMP 36.7; O2SAT 95
== END 2021-10-13 10:25 | disposition home or self-care (01) | DRG 807 ==
PROVIDERS: Admitting Provider Family Medicine; PCP Family Medicine; Visit Provider Family Medicine
DX: O99.344 Other mental disorders complicating childbirth (principal); Z37.0 Single live birth; F99 Mental disorder, not otherwise specified; F98.8 Other specified behavioral and emotional disorders with onset usually occurring in childhood and adolescence; F41.8 Other specified anxiety disorders
CPT/HCPCS: 12345; 36415; 51702; 59025; 59409; 85025; 85027; 96374; 99211; J2795; J3010

== ENCOUNTER 2024-05-02 23:03 | Inpatient (IN) | payer OTHER, SELFPAY ==
[2024-05-02] VITALS (9 sets, daily range): BP systolic 112–121; BP diastolic 66–83; PULSE 91–113; O2SAT 92–98; BMI 27.4
[2024-05-02 23:31] LABS: Basophils % 0.2 %; Eosinophils % 0.3 %; Hematocrit 33.5 % (36-47); Lymphocytes # 2.7 10^3/uL (0.8-4.8); Lymphocytes % 22.3 %; Mean Corpuscular HGB Conc 34.3 g/dL (30-55); Mean Corpuscular Hemoglobin 31.3 pg (27-33); Mean Corpuscular Volume 91.3 fl (85-98); Monocytes # 0.7 10^3/uL (0.2-0.9); Neutrophils # 8.41 10^3/uL (1.8-7.7); Neutrophils % 70.5 %; Nucleated Red Blood Cells % 0 %; Platelet Count 248 10^3/cmm (157-399); Red Blood Count 3.67 10^6/uL (3.85-5.65); Red Cell Distribution Width 12.7 % (12.1-15.1); White Blood Count 11.92 10^3/uL (3.29-11.43)
[2024-05-02] MEDS: lactated ringers 1,000 ML 999 ML IV (23:45)
[2024-05-03] VITALS (27 sets, daily range): BP systolic 85–121; BP diastolic 49–79; PULSE 72–109; RESP 14–18; TEMP 36.3–36.8; O2SAT 96–98
--- NOTE | 2024-05-03 00:07 | PM.OPHPUD ---
Labor & Delivery H&P Update Date of Procedure: May 03, 2024 Date H&P Performed: 05/01/24 Changes to previous documentation: The patient cervix was dilated to 8 cm with rupture membranes. Admission Diagnosis: 23-year-old 3 para 2-0-0-2 woman with an estimated gestational age of 39 weeks presenting in active labor with spontaneous rupture of membranes Planned procedure: Spontaneous vaginal delivery Other information: The patient began having attractions shortly before admission to the hospital. She also noted that she did have some bloody show and possible rupture membranes 2 hours prior to admission to the hospital as well. Her has been unremarkable. Her lab work has also been unremarkable. Her blood type is O+. Her antibody screen is negative. She is rubella immune. She passed her glucose screen. She is GBS negative. The remainder of her infectious disease profile was within normal limits. Related Problem List Diagnoses (1) 39 weeks gestation of : (2) Spontaneous rupture of membranes: A&P Assessment and plan (1) 39 weeks gestation of : I anticipate routine labor and delivery. Status: Acute (2) Spontaneous rupture of membranes: Status: Acute
[2024-05-03] MEDS: ROPivacaine syringe 100 MG/50 ML SYRINGE 10 MG EPIDURAL (00:13)
--- NOTE | 2024-05-03 00:15 | P.ANESASSM_ITS ---
Pre-Anesthetic Assessment Height/Weight: Height 1.75 m Weight 84.368 kg Pulse BP Pulse Ox O2 Del Method 80 108/73 98 Room Air 05/03/24 00:13 05/03/24 00:13 05/03/24 00:13 05/02/24 23:00 Preop Diagnosis: Active Labor/IUP Labor Epidural Familial anesthetic complications: None Social No alcohol and No tobacco Exam alert, oriented x 3 and clear to auscultation bilaterally Airway Submandibular: within normal limits Cervical ROM: within normal limits Mallampati: Class II Dentition: full History/ROS No significant history except as noted Pulmonary None reported CV/HEM None reported None reported Hepatic None reported GI None reported Metabolic None reported Musc/skel None reported Neuropsych Anxiety and Depression Anesthetic Plan ASA status: 2 Anesthesia: Regional (specify below) Other: Labor Epidural Medications/Allergies Home Medications Medication Instructions Recorded Confirmed Last Taken Type escitalopram oxalate 5 mg tablet 5 mg PO DAILY 02/11/21 05/07/21 Unknown History (Lexapro) multivitamin with minerals-folic tab PO DAILY 04/13/21 05/07/21 Unknown History acid 200 mcg chewable tablet (Women's Multivitamin Gummies) Allergies Allergy/AdvReac Type Severity Reaction Status Date / Time amoxicillin Allergy RASH--can Verified 05/07/21 11:41 take KEFLEX [facility] Anesthesia Medical History Anxiety and depression Diagnosed in 2019 and has been medication. Most recently Lexapro which was started in January 2021 and is well controlled. This is managed by primary care provider and she does not have a psychiatrist or therapist. No pertinent past medical history Denies diabetes, asthma, hypertension, seizures, DVT/PE PcP: JAMIE Massey Surgical History H/O arthroscopic knee surgery (~01/2018) Left---performed by Dr. Jimenez for swelling and pain S/P cone biopsy of cervix 03/06/2020---Cone Biopsy by Dr. Rose at [facility] [place] for LISA-3 ----> Pathology showed LISA-2 with negative margins Family History Family/Other Diabetes Maternal great aunt Hypothyroidism Maternal cousin, maternal great aunt Heart disease Maternal great grandfather Father Hypertension Grandfather Heart disease Maternal Grandmother Hypothyroidism maternal Denies family history of Cervical cancer Colon cancer Ovarian cancer DVT (deep venous thrombosis) Breast cancer Pulmonary embolism Uterine cancer Stroke Social History Substance/Drug Use: former Date of last use: 04/17/2019, started using THC at age 18 and smoked weekly until Female Reproductive History : 3 Data Anesthesia 05/02/24 23:12 Short CBC 05/02/24 Range/Units 23:12 WBC 11.92 H (3.29-11.43) 10^3/uL Hgb 11.50 (11.27-16.99) g/dL Hct 33.5 L (36-47) % MCV 91.3 (85-98) fl Plt Count 248 (157-399) 10^3/cmm Neut % (Auto) 70.5 % Neut # (Auto) 8.41 H (1.8-7.7) 10^3/uL Blood Bank 05/02/24 23:12 Blood Type O Positive Rho(D) Type Rh positive Cardiac Studies: 2 No Data to Display Anesthesia Procedures Epidural Time Out Performed: Yes Consent: from patient, risks and benefits reviewed and patient agrees to proceed Lumbar Level: L3-L4 Epidural position: sitting Epidural procedure: sterile prep of area, 1% lidocaine to numb the area, negative for paresthesia passed, test dose given, 1.5% xylocaine 1:200k epi, placed PCEA, no systemic response, sterile dressing applied, L.U.D. no apparent complications and 0.2% Ropiavacaine @ mls/hr (10) Additional Comments: ROEL 7cm on second attempt- catheter threaded to 12cm 5ml 2% lidocaine given via epidural. Patient verbalized improvement in contraction pattern and intensity.
[2024-05-03] MEDS: lactated ringers 1,000 ML 999 ML IV (00:35)
[2024-05-03] MEDS: ondansetron 2 mg/ML SDV 2 mL 4 MG IVP (00:35)
[2024-05-03] MEDS: oxytocin 30 UNIT/500 ML BAG 600 UNIT IV (01:50)
[2024-05-03] MEDS: dextrose 5%-lactated ringers 1,000 ML 125 ML IV (01:50)
--- NOTE | 2024-05-03 02:03 | PM.DELIVERY ---
Delivery Note: Date of delivery: May 03, 2024 Pre-delivery diagnoses: 23-year-old 3 para 2-0-0-2 at 39 weeks estimated gestational age in active labor Post-delivery diagnoses: Status post spontaneous vaginal delivery Procedure: Spontaneous vaginal delivery Delivering Physician: Anibal Mehta Estimated blood loss (mL): 50 Pre-Delivery Course: The patient presented to the hospital in active labor. An epidural was placed. She was noted to have rupture membranes, but she continued to have a forebag which was also ruptured with an amniotomy. She then progressed to complete without difficulty. Delivery: DELIVERY: The patient progressed to complete without difficulty. She delivered a male with a weight of 8 pounds 1 ounce with Apgars of 9, 9. The baby was delivered from the SUE position and placed on the mother's abdomen. The cord was then clamped and cut. There was no nuchal cord. There was no meconium. The placenta and 3 vessel cord were delivered intact shortly thereafter. The perineum and vaginal vault were carefully examined. No lacerations were noted. Both the mother and the baby were in stable condition. History History History 3 Term 2 0 Miscarriages/Ectopic 0 Living Children 2 A&P Assessment and plan (1) 39 weeks gestation of : (2) Spontaneous vaginal delivery: I anticipate routine care. Coding Level of Care Code Acute Code for Chg Fwd Diagnoses 39 weeks gestation of Z3A.39 Spontaneous vaginal delivery O80
--- NOTE | 2024-05-03 04:04 | ANE.PACU2 ---
Inpatient post-anesthesia follow up: Airway intact: Yes Vital signs: Temperature 98.3 F Pulse Rate 72 Respiratory Rate 16 Blood Pressure 110/68 Pulse Oximetry 98 Oxygen Delivery Me thod Room Air Oxygen Flow Rate Fraction of Inspir ed Oxygen Hydration adequate: Yes Nausea and vomiting: No Pain level: 1 Mental status: Baseline
[2024-05-03] MEDS: ibuprofen 800 mg tablet PO ×3 (08:53→20:05)
[2024-05-03] MEDS: docusate sodium 100 mg Capsule PO ×2 (08:53→20:05)
[2024-05-03] MEDS: PRENATAL VIT NO.130/IRON/FOLIC 1 EACH TABLET PO (08:53)
[2024-05-03 15:06] LABS: Hematocrit 31.7 % (36-47); Mean Corpuscular HGB Conc 34.7 g/dL (30-55); Mean Corpuscular Hemoglobin 32.7 pg (27-33); Mean Corpuscular Volume 94.3 fl (85-98); Mean Platelet Volume 10.4 fL (7.4-10.4); Platelet Count 227 10^3/cmm (157-399); Red Blood Count 3.36 10^6/uL (3.85-5.65); White Blood Count 11.64 10^3/uL (3.29-11.43)
--- NOTE | 2024-05-03 18:26 | ANE.PACU2 ---
Inpatient post-anesthesia follow up: Vital signs: Temperature 98.3 F Pulse Rate 72 Respiratory Rate 16 Blood Pressure 110/68 Pulse Oximetry 98 Oxygen Delivery Me thod Room Air Oxygen Flow Rate Fraction of Inspir ed Oxygen Epidural Start/End: Epidural Start Date: 05/02/24 Epidural Start Time: 23:45 Epidural End Date: 05/03/24 Epidural End Time: 01:04
[2024-05-04 04:00] VITALS: BP 108/69; PULSE 77; RESP 14; TEMP 36.6; O2SAT 97
[2024-05-04] MEDS: PRENATAL VIT NO.130/IRON/FOLIC 1 EACH TABLET PO (10:07)
[2024-05-04] MEDS: docusate sodium 100 mg Capsule PO (10:08)
[2024-05-04] MEDS: ibuprofen 800 mg tablet PO (10:08)
[2024-05-04 10:42] VITALS: BP 103/68; PULSE 74; RESP 16; TEMP 36.4; O2SAT 98
--- NOTE | 2024-05-05 01:50 | PM.OBGYDC ---
Discharge Providers STATIONARY STEAM ENGINEER Date of Admission: 05/02/24 23:03 Date of Discharge: 05/05/24 Attending Provider at Admission: Anibal Mehta MD Attending Provider at Discharge: Anibal Mehta MD Primary Care Provider: JAMIE Massey Diagnoses at Discharge Discharge Diagnosis (1) 39 weeks gestation of : Status: Acute (2) Spontaneous vaginal delivery: Status: Acute Reason for Visit Reason for Visit: contractions Hospital Course Hospital Course The patient presented to the hospital with rupture membranes. An epidural was placed. A forebag was noted and an amniotomy was performed. She progressed to complete and had an unremarkable delivery of a healthy appearing male infant. Her course was unremarkable. She did complain of some back pain that she described to the epidural placement. Otherwise she had no problems or concerns. Her bleeding was within normal limits. Her pain was within normal limits as well. She breast-fed well. Information Peripartum Data: Delivery Method: Vaginal Physical Exam Narrative: The patient is alert. She appears comfortable. Her heart has a regular rate and rhythm with no murmurs appreciated. Lungs are clear to auscultation bilaterally. Her fundus is firm and below the umbilicus. Urinary Catheter Management: Nolasco: Cath Placed During This Visit: yes, but has since been removed by the nurse Reason for Continuing Indwelling Catheter: Decision to DC Catheter Urinary Catheter Date of Insertion: 05/03/24 Urinary Catheter Time of Insertion: 01:30 Date Urinary Catheter Removed: 05/03/24 Time Urinary Catheter Discontinued: 01:44 History History History 3 Term 2 0 Miscarriages/Ectopic 0 Living Children 2 Discharge Data Studies Completed and Pending Laboratory Results WBC 11.64 10^3/uL (3.29-11.43) H 05/03/24 14:45 RBC 3.36 10^6/uL (3.85-5.65) L 05/03/24 14:45 Hgb 11.00 g/dL (11.27-16.99) L 05/03/24 14:45 Hct 31.7 % (36-47) L 05/03/24 14:45 MCV 94.3 fl (85-98) 05/03/24 14:45 MCH 32.7 pg (27-33) 05/03/24 14:45 MCHC 34.7 g/dL (30-55) 05/03/24 14:45 RDW 13.0 % (12.1-15.1) 05/03/24 14:45 Plt Count 227 10^3/cmm (157-399) 05/03/24 14:45 MPV 10.4 fL (7.4-10.4) 05/03/24 14:45 Neut % (Auto) 70.5 % 05/02/24 23:12 Lymph % (Auto) 22.3 % 05/02/24 23:12 [place] % (Auto) 6.0 % 05/02/24 23:12 Eos % (Auto) 0.3 % 05/02/24 23:12 Baso % (Auto) 0.2 % 05/02/24 23:12 Neut # (Auto) 8.41 10^3/uL (1.8-7.7) H 05/02/24 23:12 Lymph # (Auto) 2.7 10^3/uL (0.8-4.8) 05/02/24 23:12 [place] # (Auto) 0.7 10^3/uL (0.2-0.9) 05/02/24 23:12 Eos # (Auto) 0.0 10^3/uL (0.0-0.8) 05/02/24 23:12 Baso # (Auto) 0.0 10^3/uL (0.0-0.1) 05/02/24 23:12 Nucleated RBC % (auto) 0 % 05/02/24 23:12 Nucleated RBCs # 0.0 /100WBC 05/02/24 23:12 Blood Type O Positive 05/02/24 23:12 Rho(D) Type Rh positive 05/02/24 23:12 Antibody Screen Negative 05/02/24 23:12 Vitals Last Vital Signs Temp 97.5 F L 05/04/24 10:42 Pulse 74 05/04/24 10:42 Resp 16 05/04/24 10:42 BP 103/68 05/04/24 10:42 Pulse Ox 98 05/04/24 10:42 O2 Del Method Room Air 05/04/24 04:00 Results Labs OB ([facility]): Obstetrics US 01/25/24 Blood Type O Positive 05/02/24 Antibody Screen Negative 05/02/24 Hct 31.7 % (36-47) L 05/03/24 Hgb 11.00 g/dL (11.27-16.99) L 05/03/24 Rho(D) Type Rh positive 05/02/24 Plt Count 227 10^3/cmm (157-399) 05/03/24 Hep Bs Antigen Non-reactive (Nonreactive) 03/25/21 Hepatitis C Antibody Non-reactive (Nonreactive) 03/25/21 Rubella IgG Antibody 32.5 IU/mL (0.0-10.0) H 03/25/21 RPR Nonreactive (Nonreactive) 03/25/21 Gest Glucose Tolerance 86 mg/dL 09/11/19 Ser , Semi-Qnt 8416.00 mIU/mL 07/29/19 HCG, Qual Positive (Negative) H 02/11/21 Urine Opiates Screen Negative ng/mL (Negative) 03/25/21 Ur Barbiturates Screen Negative ng/mL (Negative) 03/25/21 Ur Phencyclidine Scrn Negative ng/mL (Negative) 03/25/21 Ur Amphetamines Screen Negative ng/mL (Negative) 03/25/21 U Benzodiazepines Scrn Negative ng/mL (Negative) 03/25/21 Urine Cocaine Screen Negative ng/mL (Negative) 03/25/21 U Marijuana (THC) Screen Negative ng/mL (Negative) 03/25/21 Micro Urine Specimen 03/25/21 Pap Smear Interpret See note 04/13/21 Discharge Plan Discharge Patient Disposition: Home Prescriptions: New Dermoplast (with menthol) 20-0.5 % Aerosol 1 spray topical PRN PRN (Reason: Pain) 0RF ibuprofen 800 mg Tablet 800 mg PO TID 0RF docusate sodium 100 mg Capsule 100 mg PO BID 0RF Lanolin (HPA) 100 % Cream 1 applic topical PRN PRN (Reason: Dryness) 0RF Continued Women's Multivitamin Gummies 200 mcg tablet,chewable 1 tab PO DAILY escitalopram oxalate [Lexapro] 5 mg tablet 5 mg PO DAILY Patient Comments: she is unsure of dosage Discharge Orders: Discharge Order (Routine); Ordered 05/04/24 Ordered By: Anibal Mehta Referrals: Anibal Mehta MD [Physician] - 06/18/24 11:50 am Discharge Diet: Usual diet Discharge Activity: Limit activity as instructed Patient Instructions: Depression (DC), Opioid Safety (DC), Preeclampsia and Eclampsia After Delivery (GEN), Hemorrhage (DC), OB Discharge Report, OB Food/Drug Interaction Guide, OB Care at Home, Opioid Safety, OB Vaginal Deliveries, Abnormal Bleeding Discharge Attestations STATIONARY STEAM ENGINEER Time Spent in Discharge Care*: less than 30 min Coding Level of Care Code Acute Code for Chg Fwd Diagnoses 39 weeks gestation of Z3A.39 Spontaneous vaginal delivery O80
== END 2024-05-04 10:40 | disposition home or self-care (01) | DRG 807 ==
LOC: OPOB 23:03 → OBGYN 23:03
PROVIDERS: Admitting Provider Family Medicine; PCP Nurse Practitioner Family; Visit Provider Family Medicine
DX: O99.344 Other mental disorders complicating childbirth (principal); Z37.0 Single live birth; Z3A.39 39 weeks gestation of pregnancy; F41.9 Anxiety disorder, unspecified; F32.A Depression, unspecified
CPT/HCPCS: 36415; 59025; 59409; 83986; 85025; 85027; 86850; 86900; 99211; J2405; J2590; J2795; J7120; J7121